=== PATIENT | female | born 1970 | race African-American/Black ===

== ENCOUNTER 2018-07-06 19:38 | Emergency (ER) | payer MEDICAID ==
[~2018-07-06] VITALS: Ht 175.3 cm; Wt 118.0 kg
[2018-07-06] MEDS ORDERED: ACETAMINOPHEN 325MG TABLET PO ONE (21:00)
[2018-07-06 21:27] VITALS: BP 141/82
== END 2018-07-06 21:35 | disposition home or self-care (01) ==
LOC: ER 19:38
DX: H74.8X3 Other specified disorders of middle ear and mastoid, bilateral (principal); R09.81 Nasal congestion; I10 Essential (primary) hypertension; G43.909 Migraine, unspecified, not intractable, without status migrainosus; Z88.0 Allergy status to penicillin; Z88.6 Allergy status to analgesic agent
CPT/HCPCS: 99283